=== PATIENT | male | born 1940 | race Caucasian/White ===

== ENCOUNTER 2016-11-21 19:09 | Emergency (ER) | payer OTHER ==
--- NOTE | 2016-11-21 20:31 | ED NURSING NOTES ---
Clinical Report - Nurses [facility] [address] [place] [place] [address] 11/21/2016 19:12 Patient: TUAN MCKEON TRIAGE Triage time 19:28. Acuity: LEVEL 4. Chief Complaint: HEADACHE. --19:38 Danelle Mead R.N. 19:28 11/21/16. BP: 153/79. HR: 88. RR: 15. O2 saturation: 97% on room air. Temp: 97.5 F (oral). Pain level now: 0/10. --19:38 Danelle Mead R.N. Weight: 99.7 kg stated. Height/Length: 69.5 inches Per Patient. BMI: 32. --19:36 Danelle Mead R.N. Medications LORazepam Oral (Tablet 1 mg) 1 tablet, at bedtime, insomnia, started 2 months. --19:31 Danelle Mead R.N. Warfarin Sodium Oral (Tablet 5 mg) 1 tablet, daily. --19:31 Danelle Mead R.N. Finasteride Oral (Tablet 5 mg) 1 tablet, daily. --19:31 Danelle Mead R.N. Alfuzosin HCl ER Oral (Tablet Extended Release 24 Hour 10 mg) 1 tablet, at bedtime. --19:32 Danelle Mead R.N. Diltiazem HCl ER Oral (Capsule Extended Release 24 Hour 240 mg) 1 capsule, daily. --19:33 Danelle Mead R.N. Allergies Unknown. --20:43 Danelle Mead R.N. Unable to Obtain. --20:43 Danelle Mead R.N. History Arrived by private vehicle. Historian: patient. Accompanied by family. Primary physician (). ( pt has been taking Lorazepam for 2 months and is concerned for addiction. Last dose last night. Has been taking every night for about 2 months.). This started today. PAST MEDICAL HX: Immunizations: up-to-date. SOCIAL HX: Never smoker. Occasional alcohol use. (no drinking for past 2 months). No drug use. NUTRITIONAL RISK ASSESSMENT: The nutritional risk assessment revealed no deficiencies. FUNCTIONAL ASSESSMENT: Functional assessment: no impairments noted. --19:38 Danelle Mead R.N. PROBLEMS: Anxiety Reaction. Prostate Disease. Atrial Fibrillation. Hypertension. Insomnia. --19:36 Danelle Mead R.N. ADDITIONAL SURGERIES: Appendectomy. --19:36 Danelle Mead R.N. Interventions ID band on patient. To treatment room. --19:38 Danelle Mead R.N. PHYSICAL ASSESSMENT Patient gowned. GENERAL / NEURO / PSYCH: Alert. Oriented X 4. Appears in no acute distress. HEENT: Mucous membranes are pink. RESPIRATORY: Respirations not labored. CVS: Capillary refill less than 2 seconds. SKIN: Skin is warm and dry. --19:38 Danelle Mead R.N. NURSING PROGRESS NOTES Head of bed elevated. Two patient identifiers checked. Call light placed in reach. Side rails up x 1. Bed placed in lowest position. Brakes of bed on. --19:38 Danelle Mead R.N. Patient ready for evaluation- chart flagged. --19:38 Danelle Mead R.N. DISPOSITION / DISCHARGE Condition at departure: stable. No learning barriers present. Discharge instructions provided and reviewed with the patient. Patient verbalized understanding. Written instructions provided in Danish. The patient was discharged home and accompanied by spouse. He left the Emergency Department ambulatory and via private vehicle. --20:40 Danelle Mead R.N. 20:39 11/21/16. BP: 119/68. HR: 72. RR: 15. O2 saturation: 97% on room air. Temp: deferred. Pain level now: 0/10. --20:40 Danelle Mead R.N. Locked/Released at 11/21/2016 20:44 by Danelle Mead R.N.
--- NOTE | 2016-11-21 20:31 | ED CLINICAL REPORT ---
Clinical Report - Physicians/Mid Levels [facility] [address] [place] [address] 11/21/2016 19:12 Patient: TUAN MCKEON Time Seen: 1945. Arrived- By private vehicle. Historian- patient. HISTORY OF PRESENT ILLNESS Chief Complaint: insomnia. At its maximum, severity described as severe. When seen in the E.D., severity described as severe. Modifying factors- (was better with lorazepam). Not worsened by anything. This started months and is still present. It was abrupt in onset and has been constant but is not gone now. The patient has had insomnia. No weakness. (was prescribed lorazepam 1 mg 1 or 1/2 a tab at night for sleep. Worked for the first month. Patient reports wanting to get off of the pills. Reports also taking a OTC melatonin medication.). Similar symptoms previously: Recent medical care: Not recently seen/assessed. REVIEW OF SYSTEMS No difficulty breathing, chest pain, skin rash or headache. All systems otherwise negative, except as recorded above. PAST HISTORY See nurses notes. SOCIAL HISTORY Never smoker. No alcohol use or drug use. No recent travel. Is a local resident. ADDITIONAL NOTES The nursing notes have been reviewed. PHYSICAL EXAM Vital Signs: 11/21/2016 19:28 BP: 153/79. HR: 88. RR: 15. O2 saturation: 97%. Temp: 97.5 F. Pain level now: 0/10. Blood pressure normal. Oxygen saturation normal. Appearance: Alert. No acute distress. Eyes: Pupils equal, round and reactive to light. Eyes normal inspection. ENT: Ears normal. Nose normal. Pharynx normal. Neck: Normal inspection. Neck supple. CVS: Normal heart rate and rhythm. Heart sounds normal. Pulses normal. Respiratory: No respiratory distress. Breath sounds normal. Chest nontender. Abdomen: No visible injury. Soft and nontender. Bowel sounds normal. Skin: Skin warm and dry. Normal skin color. No rash. Normal skin turgor. Neuro: Oriented X 3. No motor deficit. No sensory deficit. PROGRESS AND PROCEDURES Course of Care: he patient is a pleasant 76-year-old male presenting for evaluation of insomnia. The patient reports that he has been trying different methods for sleep. However was prescribedlorazepam for sleep. Patient reports that he was told to take half a tablet to 1 tab at night for bed. Patient states that this initially helped with his sleeping however now the patient is fear that he has become dependent on this. Patient is reporting that she would like to stop this medication. Had a long discussion with patient in regards to sleep habits and sleep hygiene. Discussed various techniques and options for helping with sleep including small snacks, sleeping patterns,complains of bright lights and other techniques. After long discussion with patient, felt the patient was not addicted to the lorazepam and would not have significant withdrawal symptoms if he were to stop however recommended patient start a tapering dose. No other concerns at this time. Patient is not a danger to self or other people. Discussed with the patient is workup here in the emergency department included home care, follow-up, and return precautions. All questions have been answered. The patient expressed understanding of these instructions and was agreeable to them. Disposition: Discharged. Condition: good. CLINICAL IMPRESSION 11/21/2016 19:28 BP: 153/79. HR: 88. RR: 15. O2 saturation: 97%. Temp: 97.5 F. Pain level now: 0/10. Blood pressure normal. Oxygen saturation normal. Idiopathic insomnia associated with drug (lorazepam). INSTRUCTIONS (Try using 1/4 a tab for at least 3 - 5 days or when you feel ready to stop taking the lorazepam). Warnings: GENERAL WARNINGS: Return or contact your physician immediately if your condition worsens or changes unexpectedly, if not improving as expected, or if other problems arise. Specifically return if pain, vomiting, bleeding, breathing difficulty or fever. Your Current Medications: CONTINUE TAKING THE FOLLOWING MEDICATIONS: Alfuzosin HCl ER Oral : Tablet Extended Release 24 Hour 10 mg, 1 tablet at bedtime. Diltiazem HCl ER Oral : Capsule Extended Release 24 Hour 240 mg, 1 capsule daily. Finasteride Oral : Tablet 5 mg, 1 tablet daily. LORazepam Oral : Tablet 1 mg, 1 tablet at bedtime, Started: 2 months, insomnia. Warfarin Sodium Oral : Tablet 5 mg, 1 tablet daily. Follow-up: Return to the emergency department as needed. Follow up with your doctor in three days. Reason for referral: recheck today's concerns. Screening today revealed the patient's blood pressure to be in the normal range. The patient should follow up with a primary care provider for blood pressure management. Understanding of the discharge instructions verbalized by patient. (Electronically signed by Keshawn Johnson Dr. 11/24/2016 6:27)
--- NOTE | 2016-11-21 20:31 | ED NURSING NOTES ---
Clinical Report - Nurses [facility] [address] [place] [address] 11/21/2016 19:12 Patient: TUAN MCKEON TRIAGE Triage time 19:28. Acuity: LEVEL 4. Chief Complaint: HEADACHE. --19:38 Danelle Mead R.N. 19:28 11/21/16. BP: 153/79. HR: 88. RR: 15. O2 saturation: 97% on room air. Temp: 97.5 F (oral). Pain level now: 0/10. --19:38 Danelle Mead R.N. Weight: 99.7 kg stated. Height/Length: 69.5 inches Per Patient. BMI: 32. --19:36 Danelle Mead R.N. Medications LORazepam Oral (Tablet 1 mg) 1 tablet, at bedtime, insomnia, started 2 months. --19:31 Danelle Mead R.N. Warfarin Sodium Oral (Tablet 5 mg) 1 tablet, daily. --19:31 Danelle Mead R.N. Finasteride Oral (Tablet 5 mg) 1 tablet, daily. --19:31 Danelle eMad R.N. Alfuzosin HCl ER Oral (Tablet Extended Release 24 Hour 10 mg) 1 tablet, at bedtime. --19:32 Danelle Mead R.N. Diltiazem HCl ER Oral (Capsule Extended Release 24 Hour 240 mg) 1 capsule, daily. --19:33 Danelle Mead R.N. Allergies Unknown. --20:43 Danelle Mead R.N. Unable to Obtain. --20:43 Danelle Mead R.N. History Arrived by private vehicle. Historian: patient. Accompanied by family. Primary physician (). ( pt has been taking Lorazepam for 2 months and is concerned for addiction. Last dose last night. Has been taking every night for about 2 months.). This started today. PAST MEDICAL HX: Immunizations: up-to-date. SOCIAL HX: Never smoker. Occasional alcohol use. (no drinking for past 2 months). No drug use. NUTRITIONAL RISK ASSESSMENT: The nutritional risk assessment revealed no deficiencies. FUNCTIONAL ASSESSMENT: Functional assessment: no impairments noted. --19:38 Danelle Mead R.N. PROBLEMS: Anxiety Reaction. Prostate Disease. Atrial Fibrillation. Hypertension. Insomnia. --19:36 Danelle Mead R.N. ADDITIONAL SURGERIES: Appendectomy. --19:36 Danelle Mead R.N. Interventions ID band on patient. To treatment room. --19:38 Danelle Mead R.N. PHYSICAL ASSESSMENT Patient gowned. GENERAL / NEURO / PSYCH: Alert. Oriented X 4. Appears in no acute distress. HEENT: Mucous membranes are pink. RESPIRATORY: Respirations not labored. CVS: Capillary refill less than 2 seconds. SKIN: Skin is warm and dry. --19:38 Danelle Mead R.N. NURSING PROGRESS NOTES Head of bed elevated. Two patient identifiers checked. Call light placed in reach. Side rails up x 1. Bed placed in lowest position. Brakes of bed on. --19:38 Danelle Mead R.N. Patient ready for evaluation- chart flagged. --19:38 Danelle Mead R.N. DISPOSITION / DISCHARGE Condition at departure: stable. No learning barriers present. Discharge instructions provided and reviewed with the patient. Patient verbalized understanding. Written instructions provided in Romanian. The patient was discharged home and accompanied by spouse. He left the Emergency Department ambulatory and via private vehicle. --20:40 Danelle Mead R.N. 20:39 11/21/16. BP: 119/68. HR: 72. RR: 15. O2 saturation: 97% on room air. Temp: deferred. Pain level now: 0/10. --20:40 Danelle Mead R.N. Locked/Released at 11/21/2016 20:44 by Danelle Mead R.N.
--- NOTE | 2016-11-24 06:27 | ED DISCHARGE INSTRUCTIONS ---
Patient: TUAN MCKEON General Instructions [facility] VisitID: [id number] [place] [address] 76y, M Registration Date/Time: 11/21/2016 11/21/2016 19:28 BP: 153/79. HR: 88. RR: 15. O2 saturation: 97%. Temp: 97.5 F. Pain level now: 0/10. Blood pressure normal. Oxygen saturation normal. Idiopathic insomnia associated with drug (lorazepam). INSTRUCTIONS (Try using 1/4 a tab for at least 3 - 5 days or when you feel ready to stop taking the lorazepam). Warnings: GENERAL WARNINGS: Return or contact your physician immediately if your condition worsens or changes unexpectedly, if not improving as expected, or if other problems arise. Specifically return if pain, vomiting, bleeding, breathing difficulty or fever. Your Current Medications: CONTINUE TAKING THE FOLLOWING MEDICATIONS: Alfuzosin HCl ER Oral : Tablet Extended Release 24 Hour 10 mg, 1 tablet at bedtime. Diltiazem HCl ER Oral : Capsule Extended Release 24 Hour 240 mg, 1 capsule daily. Finasteride Oral : Tablet 5 mg, 1 tablet daily. LORazepam Oral : Tablet 1 mg, 1 tablet at bedtime, Started: 2 months, insomnia. Warfarin Sodium Oral : Tablet 5 mg, 1 tablet daily. Follow-up: Return to the emergency department as needed. Follow up with your doctor in three days. Reason for referral: recheck today's concerns. Screening today revealed the patient's blood pressure to be in the normal range. The patient should follow up with a primary care provider for blood pressure management. Understanding of the discharge instructions verbalized by patient. ADDITIONAL INFORMATION Insomnia Insomnia refers to a difficulty going to sleep or staying asleep, or both. Insomnia has many causes, including anxiety, stress, depression, chronic pain, sleeping cycles out of balance due to working night shifts or excess napping during the day, and a condition called sleep apnea. Insomnia can be a side effect from stimulant medicines such as decongestants, asthma inhalers and pills, diet pills, and illegal drugs such as speed, crank, crack, and PCP. Home Care: Review your medicines with your doctor or pharmacist to find out if they can cause insomnia. Caffeine, smoking and alcohol also affect sleep. Limit your daily use and do not use these before bedtime. Alcohol may make you sleepy at first, but as its effects wear off, you may awaken a few hours later and have trouble returning to sleep. Do not exercise, eat or drink large amounts of liquid within 2 hours of your bedtime. Improve your sleep habits. Have a fixed bed and wake-up time. Try to keep noise, light and heat in your bedroom at a comfortable level. Try using earplugs or eyeshades if needed. Avoid watching TV in bed. If you do not fall asleep within 30 minutes, try to relax by reading or listening to soft music. Limit daytime napping to one 30 minute period, early in the day. Get regular exercise. Find other ways to lessen your stress level. If a medicine was prescribed to help reset your sleep patterns, take it as directed. Sleeping pills are intended for short-term use, only. If taken for too long, the effect wears off while the risk of physical addiction and psychological dependence increases. Follow-Up with your doctor or as directed by our staff if you feel that your insomnia is not responding to the above measures. Get Prompt Medical Attention if any of the following occur: Extreme restlessness or irritability Confusion or hallucinations (seeing or hearing things that are not there) Anxiety, depression Several days without sleeping You have been given the following additional information: Insomnia (Electronically signed by Keshawn Johnson Dr. 11/24/2016 6:27)
--- NOTE | 2016-11-24 06:28 | ED MAR SUMMARY ---
..... Medication Administration Record [facility] [address] [place], [place] [id number] Patient: TUAN MCKEON Visit ID: [id number] 76y, M Weight: 99.7 kg Height/Length: 69.5 in BMI: 32 ALLERGIES: Unable to Obtain, Unknown
--- NOTE | 2016-11-24 06:28 | ED MED RECONCILIATION SUMMARY ---
Patient: TUAN MCKEON Medication Reconciliation Report [facility] VisitID: [id number] [address] [place] [address] 76y, M Registration Date/Time: 11/21/2016 Weight: 99.7 kg Height/Length: 60 in. BMI: 32.0 ALLERGIES: Unable to Obtain, Unknown The patient's Home Medications are listed below: CONTINUE TAKING THE FOLLOWING MEDICATIONS: Alfuzosin HCl ER Oral (10 mg) 1 tablet, at bedtime Diltiazem HCl ER Oral (240 mg) 1 capsule, daily Finasteride Oral (5 mg) 1 tablet, daily LORazepam Oral (1 mg) 1 tablet, at bedtime, insomnia Warfarin Sodium Oral (5 mg) 1 tablet, daily The source(s) of the original Home Medication information: Not obtained. The following Medications were given to the patient in the Emergency Department: None. The following Medications were prescribed to the patient: None.
--- NOTE | 2016-11-24 06:28 | ED MAR SUMMARY ---
..... Medication Administration Record [facility] [address] [place] [id number] Patient: TUAN MCKEON Visit ID: [id number] 76y, M Weight: 99.7 kg Height/Length: 69.5 in BMI: 32 ALLERGIES: Unable to Obtain, Unknown
--- NOTE | 2016-11-24 06:28 | ED MED RECONCILIATION SUMMARY ---
Patient: TUAN MCKEON Medication Reconciliation Report [facility] VisitID: [id number] [address] [place] [address] 76y, M Registration Date/Time: 11/21/2016 Weight: 99.7 kg Height/Length: 60 in. BMI: 32.0 ALLERGIES: Unable to Obtain, Unknown The patient's Home Medications are listed below: CONTINUE TAKING THE FOLLOWING MEDICATIONS: Alfuzosin HCl ER Oral (10 mg) 1 tablet, at bedtime Diltiazem HCl ER Oral (240 mg) 1 capsule, daily Finasteride Oral (5 mg) 1 tablet, daily LORazepam Oral (1 mg) 1 tablet, at bedtime, insomnia Warfarin Sodium Oral (5 mg) 1 tablet, daily The source(s) of the original Home Medication information: Not obtained. The following Medications were given to the patient in the Emergency Department: None. The following Medications were prescribed to the patient: None.
== END 2016-11-21 20:38 | disposition home or self-care (01) ==
LOC: ED SRH 19:09
DX: F51.01 Primary insomnia (principal); I10 Essential (primary) hypertension; Z79.899 Other long term (current) drug therapy; Z79.01 Long term (current) use of anticoagulants